=== PATIENT | female | born 1990 | race Caucasian/White ===

== ENCOUNTER 2017-01-24 09:41 | Inpatient (IN) | payer MEDICAID, OTHER ==
[~2017-01-24] VITALS: Ht 157.5 cm; Wt 55.8 kg
[~2017-01-24 09:41] MED LIST: BUSP5TAB20 PO; SERT100T12 PO
[2017-01-24 10:00] LABS: BASOPHILS # (AUTO) 0.03 K/uL (0.00-0.20); BASOPHILS % (AUTO) 0.3 % (0.0-2.0); EOSINOPHILS # (AUTO) 0.02 K/uL (0.00-0.70); EOSINOPHILS % (AUTO) 0.21 % (1.0-6.0); HEMATOCRIT 40.3 % (36-46); HEMOGLOBIN 13.7 g/dL (12.0-16.0); LYMPHOCYTES # (AUTO) 1.4 K/uL (1.0-4.8); LYMPHOCYTES % (AUTO) 13.3 % (22.0-44.0); MEAN CORPUSCULAR HEMOGLOBIN 30.7 pg (26.0-34.0); MEAN CORPUSCULAR VOLUME 90 fL (80-100); MONOCYTES # (AUTO) 0.3 K/uL (0.1-1.0); MONOCYTES % (AUTO) 2.7 % (2.0-9.0); NEUTROPHILS # (AUTO) 8.6 K/uL (1.8-7.7); NEUTROPHILS % (AUTO) 83.5 % (40.0-70.0); PLATELET COUNT (AUTO) 194 K/uL (150-450); RED BLOOD CELL COUNT(AUTO) 4.47 MIL/uL (4.00-5.20); RED CELL DISTRIBUTION WIDTH 12.7 % (11.5-14.5); WHITE BLOOD COUNT (AUTO) 10.3 K/uL (4.5-11.0)
[2017-01-24] MEDS ORDERED: HALOPERIDOL LACTATE 5 MG/ML VIAL IM ONE (10:00)
[2017-01-24] MEDS ORDERED: LORazepam 2 MG/ML VIAL IM ONE (10:00)
[2017-01-24] MEDS ORDERED: DiphenhydrAMINE HCL 50 MG/ML VIAL IM ONE (10:00)
[2017-01-24 10:09] LABS: ANION GAP 10 mmol/L (8-16); CALCIUM, TOTAL 8.8 mg/dL (8.8-10.5); CARBON DIOXIDE 27 mmol/L (22-29); CHLORIDE 104 mmol/L (98-107); CREATININE 0.78 mg/dL (0.60-1.30); GLOMERULAR FILTR. RATE CALC > 60 mL/min (>60); POTASSIUM 3.6 mmol/L (3.5-5.1); SODIUM SERUM 141 mmol/L (136-145); UREA NITROGEN, BLOOD 5 mg/dL (7-18)
[2017-01-24 10:15] LABS: ALANINE AMINOTRANSFERASE 22 U/L (12-78); ALBUMIN 4.1 g/dL (3.4-5.0); ASPARTATE AMINOTRANSFERASE 23 U/L (15-37); BILIRUBIN,TOTAL 0.4 mg/dL (0.1-1.0); TOTAL PROTEIN, SERUM 7.3 g/dL (6.4-8.2)
[2017-01-24] MEDS ORDERED: LORazepam 2 MG TABLET PO PRN (10:45)
[2017-01-24] MEDS ORDERED: ZOLPIDEM TARTRATE 10 MG TABLET PO PRN (10:45)
[2017-01-24 16:00] VITALS: BP 101/62
[2017-01-25 07:16] VITALS: BP 110/68
[2017-01-25 09:32] LABS: CHOL/HDL RATIO 2.3 (3.9-5.7); THYROID STIMULATING HORMONE 1.8 uIU/mL (0.36-3.74)
[2017-01-25 09:50] LABS: APPEARANCE,URINE CLEAR (CLEAR); GLUCOSE, URINE (UA) NEGATIVE (NEGATIVE); KETONES,URINE NEGATIVE (NEGATIVE); LEUKOCYTE ESTERASE ,URINE NEGATIVE (NEGATIVE); OCCULT BLOOD,URINE NEGATIVE (NEGATIVE); PROTEIN,URINE NEGATIVE (NEGATIVE)
[2017-01-25 09:51] LABS: ADD UA MICROSCOPIC NO
[2017-01-25] MEDS: LORazepam 1 MG TABLET PO SCH ×2 (10:15→16:56)
[2017-01-25 16:00] VITALS: BP 108/67
[2017-01-25] MEDS ORDERED: LORazepam 1 MG TABLET PO SCH (17:00)
[2017-01-25] MEDS: HALOPERIDOL 5 MG TABLET PO PRN (20:28)
[2017-01-26 01:49] VITALS: BP 112/63
[2017-01-26 08:36] VITALS: BP 100/57
[2017-01-26] MEDS: LORazepam 1 MG TABLET PO SCH ×2 (08:42→16:39)
[2017-01-26] MEDS: HALOPERIDOL 5 MG TABLET PO PRN ×2 (08:42→20:12)
[2017-01-26] MEDS: ARIPiprazole 10 MG TABLET PO SCH (08:42)
[2017-01-26] MEDS: SERTRALINE HCL 100 MG TABLET PO SCH (12:27)
[2017-01-26 16:18] VITALS: BP 112/71
[2017-01-26] MEDS: BusPIRone HCL 10 MG TABLET PO SCH (16:51)
[2017-01-26] MEDS ORDERED: BusPIRone HCL 5 MG TABLET PO SCH (17:00)
[2017-01-27 05:48] VITALS: BP 114/68
[2017-01-27 08:24] VITALS: BP 102/62
[2017-01-27] MEDS: ARIPiprazole 10 MG TABLET PO SCH ×2 (08:37→08:45)
[2017-01-27] MEDS: BusPIRone HCL 10 MG TABLET PO SCH ×3 (08:37→16:28)
[2017-01-27] MEDS: LORazepam 1 MG TABLET PO SCH ×2 (08:37→16:28)
[2017-01-27] MEDS: HALOPERIDOL 5 MG TABLET PO PRN ×2 (08:37→20:16)
[2017-01-27] MEDS: SERTRALINE HCL 100 MG TABLET PO SCH ×2 (08:41→08:47)
[2017-01-27] MEDS ORDERED: LOPERAMIDE HCL 2 MG CAPSULE PO PRN (15:15)
[2017-01-27] MEDS ORDERED: PROMETHAZINE HCL 25 MG/ML VIAL IM PRN (15:15)
[2017-01-27 16:32] VITALS: BP 113/72
[2017-01-28 06:12] VITALS: BP 110/74
[2017-01-28] MEDS: BusPIRone HCL 10 MG TABLET PO SCH ×3 (09:00→16:07)
[2017-01-28 09:13] VITALS: BP 110/66
[2017-01-28] MEDS: LORazepam 1 MG TABLET PO SCH (09:29)
[2017-01-28] MEDS: SERTRALINE HCL 100 MG TABLET PO SCH (09:34)
[2017-01-28] MEDS: ARIPiprazole 10 MG TABLET PO SCH (09:35)
[2017-01-28] MEDS: LORazepam 0.5 MG TABLET PO SCH (16:07)
[2017-01-28 16:18] VITALS: BP 108/68
[2017-01-28] MEDS: HALOPERIDOL 5 MG TABLET PO PRN ×2 (18:24→22:26)
[2017-01-29 05:55] VITALS: BP 120/66
[2017-01-29 08:21] VITALS: BP 103/59
[2017-01-29] MEDS: LORazepam 0.5 MG TABLET PO SCH (10:02)
[2017-01-29] MEDS: BusPIRone HCL 10 MG TABLET PO SCH ×2 (10:02→17:08)
[2017-01-29] MEDS: SERTRALINE HCL 100 MG TABLET PO SCH (10:02)
[2017-01-29] MEDS: ARIPiprazole 10 MG TABLET PO SCH (10:02)
[2017-01-29 16:13] VITALS: BP 114/65
[2017-01-29] MEDS ORDERED: ZOLPIDEM TARTRATE 10 MG TABLET PO PRN (16:15)
[2017-01-30 05:06] VITALS: BP 114/68
[2017-01-30 08:56] VITALS: BP 100/67
[2017-01-30] MEDS: BusPIRone HCL 10 MG TABLET PO SCH (09:51)
[2017-01-30] MEDS: SERTRALINE HCL 100 MG TABLET PO SCH (09:51)
[2017-01-30] MEDS: ARIPiprazole 10 MG TABLET PO SCH (09:51)
[2017-01-30] MEDS ORDERED: BUSP10TA23 PO (15:53)
[2017-01-30] MEDS ORDERED: ARIP10TA8 PO (15:53)
[2017-01-30] MEDS ORDERED: SERT100T12 PO (15:54)
[2017-01-30 16:33] VITALS: BP 132/86
== END 2017-01-30 17:25 | disposition home or self-care (01) | DRG 753 ==
LOC: EMS 09:45 → B3A 14:40
PROVIDERS: ADMIT Psychiatry & Neurology Psychiatry; ATTEND Psychiatry & Neurology Psychiatry
DX: F31.2 Bipolar disorder, current episode manic severe with psychotic features (principal); K90.0 Celiac disease; F12.90 Cannabis use, unspecified, uncomplicated; F41.9 Anxiety disorder, unspecified; K58.9 Irritable bowel syndrome, unspecified; M85.80 Other specified disorders of bone density and structure, unspecified site; Z79.899 Other long term (current) drug therapy; Z88.0 Allergy status to penicillin
CPT/HCPCS: 84436; 84439; 84443; 96372; 99285; G0480; J2550